=== PATIENT | female | born 1990 | race Caucasian/White ===

== ENCOUNTER 2019-12-28 12:35 | Outpatient (CLI) | payer SELFPAY ==
--- NOTE | 2019-12-28 12:41 | CT_ITS ---
WS: [id number] Exam: CT facial bones wo con* [id number] Date/Time of Exam: 12/28/2019 12:42 PM Reason For Exam: MAXILLA PAIN DLP: 1029.[address] scans at [facility] use at least one of these dose optimization techniques: automat ed exposure control; mA and/or kV adjustment per patient size (includes targeted exams where dose is matched to clinical indication); or iterative reconstruction. The facial bones are evaluated in the axial plane with sagittal and coronal reformatted images. No sign of acute facial fracture. There is deformity of the right maxillary sinus which may be second amanda to previous facial trauma or this could be developmental. The facial sinuses are otherwise clear. Rightward deviation of the nasal septum. Normal-appearing orbits and optic globes. The mandible is i ntact. No sign of bone destruction or soft tissue mass. CT/CT facial bones wo con* [id number] IMPRESSION: 1. Deformity of the right maxillary sinus which may be secondary to previous fa cial trauma or could be developmental. 2. No sign of acute facial fracture, bone destruction or mass.
--- NOTE | 2019-12-28 12:41 | CT_ITS ---
WS: [id number] Exam: CT cervical spin wo con* [id number] Date/Time of Exam: 12/28/2019 12:42 PM Reason For Exam: NECK PAIN DLP: 1969.[address] scans at [facility] use at least one of these dose optimization techniques: automat ed exposure control; mA and/or kV adjustment per patient size (includes targeted exams where dose is matched to clinical indication); or iterative reconstruction. The C-spine is evaluated in the axial plane with sagittal and coronal reformatted images. There was no sign of fracture or dislocation. The bony spinal canal is patent. No obvious canal steno sis or foraminal stenosis. Paraspinal soft tissues are unremarkable. Facet joints appear normal. Ther e is reversal of the normal cervical lordosis which is probably positional. CT/CT cervical spin wo con* [id number] IMPRESSION: 1. No evidence of C-spine fracture or malalignment. 2. No sign of obvious spinal canal stenosis.
--- NOTE | 2019-12-28 12:41 | CT_ITS ---
WS: [id number] Exam: CT head wo con* [id number] Date/Time of Exam: 12/28/2019 12:42 PM Reason For Exam: C DLP: 992.[address] scans at [facility] use at least one of these dose optimization techniques: automat ed exposure control; mA and/or kV adjustment per patient size (includes targeted exams where dose is matched to clinical indication); or iterative reconstruction. Comparison 07/11/2009. Questionable area of decreased attenuation in the left temporal lobe. No sign of acute bleed. The cheryl tricles and basal cisterns are normal in size. No extra-axial fluid collections are seen. The skull i s intact. The mastoids and facial sinuses are clear. CT/CT head wo con* [id number] IMPRESSION: 1. Questionable area of low attenuation the left temporal lobe. Follow-up CT sc an of the brain with IV contrast recommended. 2. No sign of acute bleed or other significant finding.
== END 2019-12-28 12:36 | disposition home or self-care (01) ==
LOC: RADWPI 12:40
PROVIDERS: PCP Nurse Practitioner Family; Visit Provider Physician Assistant
DX: R68.84 Jaw pain (principal); M54.2 Cervicalgia; S06.0X9A Concussion with loss of consciousness of unspecified duration, initial encounter; X58.XXXA Exposure to other specified factors, initial encounter
CPT/HCPCS: 70450; 70486; 72125

== ENCOUNTER → 2023-01-10 08:51 | Outpatient (BNVA) | payer MEDICAID, SELFPAY | PROVIDERS: PCP Nurse Practitioner Family; Visit Provider Nurse Practitioner Family | DX: R07.9 Chest pain, unspecified (principal); F43.9 Reaction to severe stress, unspecified | CPT/HCPCS: 93005 ==

== ENCOUNTER 2023-08-12 07:50 | Outpatient (CLI) | payer MEDICAID, SELFPAY ==
--- NOTE | 2023-08-12 08:20 | MR_ITS ---
WS: [id number] MRI BRAIN AND ORBITS WITH AND WITHOUT CONTRAST HISTORY: RETINAL DISORDER COMPARISON: None available. TECHNIQUE: Multiplanar imaging performed through the brain with MultiHance 20 ml's IV. Normal appearance of the orbits and globes to the optic nerves are symmetric bilaterally. There is no enhancement, atrophy or enlargement. No mass or displacement. Extraocular muscles are also normal. S uperior orbital vein is normal. Optic chiasm is normal. No mass. No acute infarcts are seen. Lopez-white matter differentiation is well preserved. No susceptibility artifacts or prior lacunar infarcts. Ventricles and extra-axial spaces are normal. Clivus and pituitary gland are normal. Visualized posterior fossa and brainstem are also normal. Postcontrast images are negative for masses or vascular malformations. Paranasal sinuses: Small amount of frothy secretions in the RIGHT maxillary sinus. Mastoid air cells: Normal. Calvarium and scalp: Normal. MR/MR orbit face neck wo/w* [id number] IMPRESSION: 1. Normal appearance of the orbits and globes and optic nerves. There is no as ymmetry. No abnormal enhancement. 2. Normal optic chiasm. 3. Negative MRI brain. There are no masses or signal abnormalities. No prior in farct or hemorrhage.
[2023-08-12] MEDS: gadobenate dimeglumine 20 mL vial IV (10:30)
== END 2023-08-12 07:51 | disposition home or self-care (01) ==
PROVIDERS: PCP Nurse Practitioner Family; Visit Provider Nurse Practitioner Family
DX: H35.9 Unspecified retinal disorder (principal)
CPT/HCPCS: 70543; A9577

== ENCOUNTER 2024-07-10 08:00 | Oncology outpatient (recurring) (ONCR) | payer MEDICAID, SELFPAY ==
[2024-07-10 08:54] VITALS: BP 141/73; PULSE 76; RESP 17; TEMP 36.4; O2SAT 99
[2024-07-10] MEDS: iron sucrose 200 MG in sodium chloride 0.9% (100 ml) 100 ML IV (09:20)
[2024-07-10 10:01] VITALS: BP 103/69; PULSE 69; RESP 18; TEMP 36.9; O2SAT 97
== END 2024-07-11 23:59 | disposition home or self-care (01) ==
PROVIDERS: PCP Nurse Practitioner Family; Visit Provider Internal Medicine Medical Oncology
DX: Z53.9 Procedure and treatment not carried out, unspecified reason (principal); D50.9 Iron deficiency anemia, unspecified; Z79.899 Other long term (current) drug therapy
CPT/HCPCS: 96365; J1756

== ENCOUNTER 2024-07-17 09:00 | Oncology outpatient (recurring) (ONCR) | payer BC, MEDICAID, SELFPAY ==
[2024-07-13] MEDS: iron sucrose 200 MG in sodium chloride 0.9% (100 ml) 100 ML IV (15:03)
[2024-07-15] MEDS: iron sucrose 200 MG in sodium chloride 0.9% (100 ml) 100 ML 220 MG IV (12:40)
[2024-07-15 13:15] VITALS: BP 106/73; PULSE 76; TEMP 36.8; O2SAT 99
[2024-07-17 08:55] VITALS: BP 127/68; PULSE 86; RESP 15; TEMP 36.4; O2SAT 99
[2024-07-17] MEDS: iron sucrose 200 MG in sodium chloride 0.9% (100 ml) 100 ML 220 MG IV (09:29)
[2024-07-17] MEDS: sodium chloride 0.9% 250 ML 75 ML IV (10:08)
[2024-07-17] MEDS: ondansetron 2 mg/ML SDV 2 mL 8 MG IVP (10:14)
[2024-07-17] MEDS: methylPREDNISolone sod succ 40 mg/mL INJ IVP (10:22)
[2024-07-17] MEDS: acetaminophen 325 mg Tablet 650 MG PO (10:24)
--- NOTE | 2024-07-17 11:38 | PC.NURSE ---
Patient complained of not feeling well at the end of her infusion. Patient stated that she had a headache, was nauseous, light headed, dizzy and felt hot/flushed. VS p 73, r 18 b/p 134/80 o2 98% room air. Patient was given ordered 250 ml normal saline bolus. Xavi Villeda LINKER UP notified of patients symptoms and complaints. Patient was evaluated by Xavi Dennison NP. Received verbal orders for Zofran 8m IVP, Solumedrol 40mg IVP, Tylenol 650mg oral. 101 VS p 75, r 18, b\p 142/74 o2 98% room air. Patient rates her headache pain 8/10. 1030 VS p 61, r 18, b\p 110/79 o2 99% room air. 1045 received order for 500ml ns, patient states nausea is slightly improved but continues to state pain remains at 8/10. Xavi Dennison request patient to be evaluated in the ER. Patient refuses rapid response, she request to walk to ER. Per Yamel Kingston RN, transport by our nursing staff via wheelchair was acceptable if patient was refusing rapid response. Patient was transported by myself and Ollie Beach along with the patients mother, who was with her for her appointment, to [facility] ER. This nurse stayed with the patient until patient was taken in for triage. Full explanation of patient's reaction, medications given in infusion and vital signs were given to triage nurse.
== END 2024-07-17 11:00 | disposition home or self-care (01) ==
PROVIDERS: PCP Nurse Practitioner Family; Visit Provider Internal Medicine Medical Oncology
DX: Z53.9 Procedure and treatment not carried out, unspecified reason; D50.9 Iron deficiency anemia, unspecified; Z79.899 Other long term (current) drug therapy
CPT/HCPCS: 96365; 96375; J1756; J2405; J2919; J7050; J9999

== ENCOUNTER 2024-07-17 11:06 | Emergency (ER) | payer BC, MEDICAID, SELFPAY ==
[2024-07-17 11:08] VITALS: BP 115/78; PULSE 66; TEMP 36.9; O2SAT 100; BMI 34.9
[2024-07-17 11:44] VITALS: BP 128/84; PULSE 65; RESP 16; O2SAT 99
--- NOTE | 2024-07-17 12:04 | CT_ITS ---
WS: [id number] CT HEAD TECHNIQUE: Noncontrast CT of the head obtained from the skullbase to the vertex. CLINICAL INFORMATION: severe headache post venofer infusion COMPARISON: CT 2019 DLP: 1106.[address] scans at [facility] use at least one of these dose optimization techniques: automated exposure control; mA and/or kV adjustment per patient size (includes targeted exams where dose is matched to clinical indication); or iterative reconstruction. FINDINGS: No evidence of intracranial hemorrhage or mass effect. Ventricular system and basal cisterns are patent. No extra-axial fluid collections. No evidence of mass or mass effect. Incidental slightly low-lying cerebellar tonsils. Paranasal sinuses and mastoid air cells are well aerated. .Normal visualized soft tissues. CT/CT head wo con* [id number] IMPRESSION: 1. No evidence of intracranial hemorrhage or mass effect. 2. No acute intracranial findings.
[2024-07-17] MEDS: sodium chloride 0.9% 1,000 ML 999 ML IV (12:14)
[2024-07-17] MEDS: prochlorperazine 10 mg/2 mL Inj IVP (12:16)
[2024-07-17 12:19] LABS: Basophils % 0.4 %; Eosinophils # 0.1 10^3/uL (0.0-0.8); Eosinophils % 2.5 %; Hematocrit 33.9 % (36-47); Lymphocytes # 1.1 10^3/uL (0.8-4.8); Lymphocytes % 24.2 %; Mean Corpuscular HGB Conc 28.9 g/dL (30-55); Mean Corpuscular Hemoglobin 21.1 pg (27-33); Mean Corpuscular Volume 73.1 fl (85-98); Mean Platelet Volume 10.8 fL (7.4-10.4); Monocytes # 0.1 10^3/uL (0.2-0.9); Monocytes % 2.3 %; Neutrophils # 3.31 10^3/uL (1.8-7.7); Neutrophils % 70.4 %; Nucleated Red Blood Cells % 0 %; Platelet Count 260 10^3/cmm (157-399); Red Blood Count 4.64 10^6/uL (3.85-5.65); Red Cell Distribution Width 22.4 % (12.1-15.1); White Blood Count 4.71 10^3/uL (3.29-11.43)
[2024-07-17] MEDS: dexamethasone 10 mg/mL INJ 6 MG IVP (12:19)
[2024-07-17] MEDS: diphenhydrAMINE 50 mg/mL SDV 1mL 25 MG IVP (12:21)
[2024-07-17] MEDS: ketorolac 30 mg/mL INJ IVP (12:22)
[2024-07-17 12:24] VITALS: BP 110/68; PULSE 62; RESP 16; O2SAT 99
[2024-07-17 12:32] LABS: Alanine Aminotransferase 17 U/L (0-33); Albumin Level 4.1 g/dL (3.5-5.2); Alkaline Phosphatase 86 U/L (35-105); Aspartate Amino Transferase 20 U/L (0-32); Blood Urea Nitrogen 10 mg/dL (6-20); Carbon Dioxide 25 mmol/L (22-29); Chloride 101 mmol/L (98-107); Creatinine Clr Calc Pharmacy 168.5741; Glomerular Filtration Rate 115.1 mL/min (90-130); Glucose 97 mg/dL (65-115); Osmolality Calculated 283 mOsm/kg (285-295); Sodium 137 mmol/L (136-145); Total Protein 7.1 g/dL (6.6-8.7)
--- NOTE | 2024-07-17 12:33 | W.ED.HA ---
HPI - Headache General: Chief Complaint: Headache Stated Complaint: reaction Time Seen by Provider: 07/17/24 11:35 History of Present Illness: 33-year-old female with a history of gastric bypass presents to the ER chief complaint of after receiving a IV drip of Venofer at the outpatient infusion/cancer center for her iron deficiency anemia the patient developed a 30 exit with allergic reaction patient reports he felt quite flushed which he became hypertensive followed by hypotensive in which she then developed a headache. Patient reports a prior history of migraine headaches. She reports she was provided steroids and medications which all the other symptoms have thus since resolved. Patient does not report a continued frontal headache with no radiation she presents to the ER for further assessment and management. Patient endorses daughter would she take amitriptyline for her headaches. Patient denies any recent infections or illnesses or any other associated symptoms. Associated symptoms: Deny chest pain, fever(s), malaise, nausea, rash or vomiting Related Data Home Medications ?Medication ?Instructions ?Recorded ?Confirmed amitriptyline 25 mg tablet mg PO 06/30/24 06/30/24 hydrochlorothiazide 25 mg tablet mg PO 06/30/24 06/30/24 sertraline 50 mg tablet mg PO 06/30/24 06/30/24 Previous Rx's ?Medication ?Instructions ?Recorded ketorolac 10 mg tablet 10 mg PO Q8H PRN headache 2 days 07/17/24 #10 tabs prednisone 20 mg tablet 20 mg PO BID 3 days #6 tabs 07/17/24 prochlorperazine maleate 10 mg 10 mg PO Q8H PRN nausea and 07/17/24 tablet (Compazine) vomiting 24 hours #10 tabs Allergies Allergy/AdvReac Type Severity Reaction Status Date / Time No Known Allergies Allergy Verified 07/17/24 11:16 Review of Systems General: Reports: 10 or more systems reviewed and unremarkable except in HPI and below Const: Reports: chills, body aches and fatigue; Denies: fever(s) or malaise Eyes: Denies: change in vision or blurry vision Card: Denies: chest pain or palpitations Resp: Denies: dyspnea or productive cough GI: Denies: abdominal pain, nausea or vomiting : Denies: flank pain Musc: Denies: extremity pain or extremity swelling Skin/Breast: Denies: rash or pruritus Neuro: Reports: headache(s) Psych: Denies: anxiety or depression Sundar/Lymph: Denies: easy bleeding All/Imm: Denies: urticaria, throat swelling or facial swelling PFSH ED PFSH: Social History Smoking and tobacco/nicotine status: former use of tobacco/nicotine Alcohol intake: current Substance/Drug Use: never Physical Exam Narrative: EXAM NARRATIVE: No obvious focal neurodeficit appreciated GCS 15 NIH is 0 Const: COMMON NORMALS: no acute distress, patient oriented x3 and healthy appearing HENMT: COMMON NORMALS: normocephalic and atraumatic HEAD & SCALP: normocephalic and atraumatic Eye: COMMON NORMALS: Equal, round and reactive pupils present and EOMs intact bilaterally PUPIL: Yes Equal, round and reactive pupils present Neck/C-Spine: COMMON NORMALS: full ROM, supple and no JVD Lymph: LYMPHATIC: no lymphadenopathy noted Chest: COMMONS NORMALS: normal inspection of the chest and normal palpation of entire chest wall Resp: COMMON NORMALS: normal respiratory effort, No retractions and clear to auscultation bilaterally EFFORT & INSPECTION: Yes able to speak in complete sentences and Yes symmetric chest movement AUSCULTATION: clear to auscultation bilaterally Cardio: COMMON NORMALS: no JVD, regular rate and regular rhythm RATE: regular rate RHYTHM: regular rhythm GI: COMMON NORMALS: Normal to inspection, nondistended, normoactive bowel sounds present, Soft to palpation and non-tender INSPECTION: Yes normal to inspection PALPATION: Yes Soft to palpation : COMMON NORMALS: Yes no CVA tenderness BLADDER/KIDNEY EXAM: Yes no CVA tenderness Back/Pelvis: COMMON NORMALS: no CVA tenderness Extremity: COMMON NORMALS: normal to inspection and full ROM Neuro: COMMON NORMALS: patient oriented x3, CN's II-XII intact bilaterally, moves all extremities and no focal motor deficits Psych: COMMON NORMALS: mental status grossly normal, Normal thought process present, cooperative and normal affect THOUGHT PROCESS: Normal thought process present Skin: COMMON NORMALS: no rashes or lesions noted GENERAL SKIN EXAM: no rashes or lesions noted Course Vital Signs: Vital signs: Vital Signs Temperature 98.5 F 07/17/24 11:08 Pulse Rate 67 07/17/24 13:48 Respiratory Rate 16 07/17/24 13:48 Blood Pressure 104/58 07/17/24 13:48 Pulse Oximetry 98 07/17/24 13:48 Oxygen Delivery Me thod Room Air 07/17/24 13:48 MDM - Headache Medical Decision Making Due to the patient's symptoms and condition IV will be established basic lab work and imaging will be obtained patient will be provided with migraine cocktail for her remainder headache will be obtaining a CT of the head without contrast for further evaluation and management. Currently the patient's blood pressure remainder her vitals are stable. Lab work came back reassuring as well as CT of the head came back unremarkable as well as lab work patient's headache is is improved patient be discharged home with additional medications for further assessment and management in which she was advised to further follow-up primary care in 2 to 3 days and with return the interim if any of her symptoms persist or worsen Lab Data 07/17/24 12:09 07/17/24 12:[address] 07/17/24 12:04 IMPRESSION: 1. No evidence of intracranial hemorrhage or mass effect. 2. No acute intracranial findings. Laboratory Results WBC 4.71 10^3/uL (3.29-11.43) 07/17/24 12:09 RBC 4.64 10^6/uL (3.85-5.65) 07/17/24 12:09 Hgb 9.80 g/dL (11.27-16.99) L 07/17/24 12:09 Hct 33.9 % (36-47) L 07/17/24 12:09 MCV 73.1 fl (85-98) L 07/17/24 12:09 MCH 21.1 pg (27-33) L 07/17/24 12:09 MCHC 28.9 g/dL (30-55) L 07/17/24 12:09 RDW 22.4 % (12.1-15.1) H 07/17/24 12:09 Plt Count 260 10^3/cmm (157-399) 07/17/24 12:09 MPV 10.8 fL (7.4-10.4) H 07/17/24 12:09 Neut % (Auto) 70.4 % 07/17/24 12:09 Lymph % (Auto) 24.2 % 07/17/24 12:09 [place] % (Auto) 2.3 % 07/17/24 12:09 Eos % (Auto) 2.5 % 07/17/24 12:09 Baso % (Auto) 0.4 % 07/17/24 12:09 Neut # (Auto) 3.31 10^3/uL (1.8-7.7) 07/17/24 12:09 Lymph # (Auto) 1.1 10^3/uL (0.8-4.8) 07/17/24 12:09 [place] # (Auto) 0.1 10^3/uL (0.2-0.9) L 07/17/24 12:09 Eos # (Auto) 0.1 10^3/uL (0.0-0.8) 07/17/24 12:09 Baso # (Auto) 0.0 10^3/uL (0.0-0.1) 07/17/24 12:09 Nucleated RBC % (auto) 0 % 07/17/24 12:09 Nucleated RBCs # 0.0 /100WBC 07/17/24 12:09 Sodium 137 mmol/L (136-145) 07/17/24 12:09 Potassium 4.0 mmol/L (3.5-5.1) 07/17/24 12:09 Chloride 101 mmol/L (98-107) 07/17/24 12:09 Carbon Dioxide 25 mmol/L (22-29) 07/17/24 12:09 Anion Gap 15.0 (5-19) 07/17/24 12:09 BUN 10 mg/dL (6-20) 07/17/24 12:09 Creatinine 0.6 mg/dL (0.5-0.9) 07/17/24 12:09 GFR Calculation 115.1 mL/min (90-130) 07/17/24 12:09 Glucose 97 mg/dL (65-115) 07/17/24 12:09 Calculated Osmolality 283 mOsm/kg (285-295) L 07/17/24 12:09 Calcium 9.0 mg/dL (8.5-10.5) 07/17/24 12:09 Total Bilirubin 1.0 mg/dL (0.15-1.2) 07/17/24 12:09 AST 20 U/L (0-32) 07/17/24 12:09 ALT 17 U/L (0-33) 07/17/24 12:09 Alkaline Phosphatase 86 U/L (35-105) 07/17/24 12:09 Total Protein 7.1 g/dL (6.6-8.7) 07/17/24 12:09 Albumin 4.1 g/dL (3.5-5.2) 07/17/24 12:09 Globulin 3.0 g/dL (1.3-4.6) 07/17/24 12:09 All radiology interpretation(s) finalized by discharge Discharge Plan Discharge Patient Disposition: Home Clinical Impression: Acute headache, Adverse effect of iron and its compounds, initial encounter Condition: Stable Prescriptions: New ketorolac 10 mg tablet 10 mg PO Q8H PRN (Reason: headache) 2 Days Qty: 10 0RF prednisone 20 mg tablet 20 mg PO BID 3 Days Qty: 6 0RF prochlorperazine maleate [Compazine] 10 mg tablet 10 mg PO Q8H PRN (Reason: nausea and vomiting) 1 Days Qty: 10 0RF No Action amitriptyline 25 mg tablet PO hydrochlorothiazide 25 mg tablet PO sertraline 50 mg tablet PO Discharge Orders: Discharge ED (Routine); Ordered 07/17/24 Ordered By: Jason Leija Referrals: Miranda Marcial FNP [Primary Care Provider, Unknown] - 1-3 days Discharge Diet: Advance as tolerated Discharge Activity: Increase activity as tolerated Patient Instructions: Acute Headache (ED), Adverse Drug Reaction (ED) Activity Restrictions/Additional Instructions: Drink plenty of water in the next several days take medications as prescribed please follow-up with your [employer] scout for further evaluation management of your medication regimen and was to return the interim if any of your symptoms persist or worsen Print Language: Maldivian Coding Level of Care Code ED Shopper for Karlie Carrizales
[2024-07-17 12:35] VITALS: BP 119/79; PULSE 67; RESP 16; O2SAT 93
[2024-07-17 13:48] VITALS: BP 104/58; PULSE 67; RESP 16; O2SAT 98
[2024-07-17 14:32] VITALS: BP 113/67; PULSE 90; RESP 16; O2SAT 97
== END 2024-07-17 14:31 | disposition home or self-care (01) ==
PROVIDERS: Emergency Provider Emergency Medicine; PCP Nurse Practitioner Family
DX: R51.9 Headache, unspecified (principal); T45.4X5A Adverse effect of iron and its compounds, initial encounter; Z87.891 Personal history of nicotine dependence; X58.XXXA Exposure to other specified factors, initial encounter
CPT/HCPCS: 70450; 80053; 85025; 96374; 96375; 99285; J0780; J1100; J1200; J1885; J7030